=== PATIENT | male | born 1940 | race Caucasian/White ===

== ENCOUNTER 2021-06-06 10:09 | Inpatient (IN) | payer MEDICARE, MEDICAID ==
[~2021-06-06] VITALS: Ht 182.9 cm; Wt 151.2 kg
[~2021-06-06 10:09] MED LIST: COUMADIN 5 MG TA5 M1 PO; CRESTOR10 MG PO; DIAZEPAM 5 MG5 M1 PO; HYDROCHLOROTHIA25 M1 PO; LISINOPRIL2.5 MG PO; LOPRESSOR100 MG PO; LOVENOX; NOVOLOG100 UNIT/1; VITAMIN D 5050000 I1 PO
[2021-06-06 10:34] VITALS: BP 130/65
[2021-06-06 11:13] LABS: HEMATOCRIT 42.8 % (42.0-52.0); HEMOGLOBIN 13.8 gm/dL (14.0-18.0); MCH 28.8 pg (26.0-34.0); MCHC 32.1 g/dL (28.0-37.0); MCV 89.4 fL (80.0-100.0); MPV 7.3 fl. (7.2-11.1); NUCLEATED RBCS 0 /100WBC; PLATELET COUNT* 358 thou/uL (150-400); RBC 4.79 mil/uL (4.50-6.00); RDW-CV 15.7 % (10.5-14.5)
[2021-06-06 11:18] LABS: CALCIUM 8.4 mg/dL (8.5-10.1); CREATININE 1.3 mg/dL (0.6-1.3); POTASSIUM 3.5 mmol/L (3.5-5.1)
[2021-06-06 11:22] LABS: ALBUMIN 2.7 g/dL (3.4-5.0); TOTAL BILIRUBIN 1.3 mg/dL (<0.1-1.0); TOTAL PROTEIN 7.2 g/dL (6.4-8.2)
[2021-06-06 12:12] LABS: ABSOLUTE LYMPHOCYTES 0.7 thou/uL (0.8-5.3); ABSOLUTE MONOCYTES 1.7 thou/uL (0.0-1.2); ABSOLUTE NEUTROPHILS 21.6 thou/uL (1.6-8.1); PLATELET ESTIMATE ADEQUATE
[2021-06-06 14:00] VITALS: BP 134/89
[2021-06-06 14:44] LABS: INR 1.3; PROTIME 13.1 Seconds (9.20-11.50)
[2021-06-06 18:00] VITALS: BP 142/70
[2021-06-06 20:40] VITALS: BP 139/81
[2021-06-06 20:55] VITALS: BP 136/75
[2021-06-07] VITALS: BP 123/57
[2021-06-07 04:50] VITALS: BP 134/69
[2021-06-07 05:41] LABS: INR 1.3
[2021-06-07 05:50] LABS: ALBUMIN 2.3 g/dL (3.4-5.0); CALCIUM 8.1 mg/dL (8.5-10.1); POTASSIUM 3.2 mmol/L (3.5-5.1); TOTAL PROTEIN 6.5 g/dL (6.4-8.2)
[2021-06-07 05:52] LABS: PREALBUMIN 7.8 mg/dL (18.0-35.7)
[2021-06-07 05:54] LABS: CHOLESTEROL 106 mg/dL (<200); HDL CHOLESTEROL 36 mg/dL (>40); LDL CHOLESTEROL 56 mg/dL (<100); TC:HDL 2.9 Ratio (Not establshd); TRIGLYCERIDE 72 mg/dL (<150); VLDL 14 mg/dL (<40)
[2021-06-07 05:58] LABS: SERUM ASSESSMENT Clear
[2021-06-07 08:00] VITALS: BP 129/79
--- NOTE | 2021-06-07 11:20 | EKG ---
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: : 1940 Requested By: Gabby Potter Order Number: [id number] MD: Pancho Mayer Measurements Intervals [place] Rate: 112 P: OR: QRS: 102 QRSD: 89 T: -77 QT: 296 QTc: 404 Interpretive Statements Atrial fibrillation Right axis deviation Low voltage, precordial leads Borderline T abnormalities, diffuse leads No previous ECG available for comparison Electronically Signed On 06-07-2021 11:19:52 USED EQUIPMENT SALES REPRESENTATIVE by Pancho Mayer [email or web address] <ELECTRONICALLY SIGNED> By: Pancho Mayer MD, FACC 06/07/21 1119 1105 1105 Pancho Mayer MD, [facility] /EPI
[2021-06-07 11:45] VITALS: BP 99/51
[2021-06-07 11:52] LABS: ABSOLUTE BASOPHILS 0.1 thou/uL (0.0-0.2); ABSOLUTE EOSINOPHILS 0.1 thou/uL (0.0-0.7); ABSOLUTE LYMPHOCYTES 0.9 thou/uL (0.8-5.3); ABSOLUTE MONOCYTES 1.3 thou/uL (0.0-1.2); BASOPHILS 0.3 %; EOSINOPHILS 0.4 %; HEMATOCRIT 40.4 % (42.0-52.0); LYMPHOCYTES 4.8 %; MCH 28.5 pg (26.0-34.0); MCHC 32.1 g/dL (28.0-37.0); MCV 88.7 fL (80.0-100.0); MONOCYTES 6.9 %; MPV 7.4 fl. (7.2-11.1); NUCLEATED RBCS 0 /100WBC; PLATELET COUNT* 371 thou/uL (150-400); POLYS 87.6 %; RBC 4.56 mil/uL (4.50-6.00); RDW-CV 15.9 % (10.5-14.5); WBC 19.5 thou/uL (4.0-11.0)
[2021-06-07 15:59] VITALS: BP 99/50
[2021-06-07 20:32] VITALS: BP 85/45
[2021-06-08] VITALS: BP 126/67
[2021-06-08 03:06] LABS: GLYCOHEMOGLOBIN (HGB A1C) 6.7 % (4.8-5.6)
[2021-06-08 04:36] VITALS: BP 103/60
[2021-06-08 05:26] LABS: INR 1.2; PROTIME 12.3 Seconds (9.20-11.50)
[2021-06-08 05:34] LABS: CALCIUM 8.2 mg/dL (8.5-10.1); CREATININE 1.3 mg/dL (0.6-1.3); POTASSIUM 3.3 mmol/L (3.5-5.1)
[2021-06-08 09:00] VITALS: BP 77/31
[2021-06-08 10:43] LABS: ABSOLUTE BASOPHILS 0.1 thou/uL (0.0-0.2); ABSOLUTE EOSINOPHILS 0.1 thou/uL (0.0-0.7); ABSOLUTE LYMPHOCYTES 0.9 thou/uL (0.8-5.3); ABSOLUTE MONOCYTES 1.2 thou/uL (0.0-1.2); ABSOLUTE NEUTROPHILS 11.7 thou/uL (1.6-8.1); BASOPHILS 0.4 %; EOSINOPHILS 0.5 %; HEMATOCRIT 40.6 % (42.0-52.0); HEMOGLOBIN 13.2 gm/dL (14.0-18.0); LYMPHOCYTES 6.8 %; MCH 28.9 pg (26.0-34.0); MCHC 32.6 g/dL (28.0-37.0); MCV 88.8 fL (80.0-100.0); MONOCYTES 8.7 %; MPV 7.7 fl. (7.2-11.1); NUCLEATED RBCS 0 /100WBC; PLATELET COUNT* 353 thou/uL (150-400); POLYS 83.6 %; RBC 4.58 mil/uL (4.50-6.00); RDW-CV 15.7 % (10.5-14.5)
[2021-06-08 10:55] LABS: ALBUMIN 2.4 g/dL (3.4-5.0); CREATININE 1.3 mg/dL (0.6-1.3); POTASSIUM 3.6 mmol/L (3.5-5.1); TOTAL BILIRUBIN 0.8 mg/dL (<0.1-1.0); TOTAL PROTEIN 6.7 g/dL (6.4-8.2)
--- NOTE | 2021-06-08 11:39 | CON ---
[address] [address] CONSULTATION Name: VITALY MOODY Room: [address] IN [place].Samuel.#: [id number] Admission: 06/06/21 Attend Phys: Williams Buck MD Discharge: Date of : 42 Report #: [id number] THIS REPORT FOR: cc: FAM - No family physician/PCP FAM - No family physician/PCP Pancho Mayer MD [facility] ~ cc: Vish Villavicencio DO DATE OF CONSULTATION: 06/07/2021 HISTORY OF PRESENT ILLNESS: The patient is a 80-year-old white male who I was asked to see in the hospital today after he was noted to be in atrial fibrillation. The history is obtained from the patient. There are no family members available. He has never been here to [place] before. He denies a history of heart disease. He is not very active at this time and uses a walker. Recently, he has been having back pain. He finally had the ambulance bring him to the Emergency Room yesterday morning. Apparently, the found that he was having loose stools and his legs were covered with stool. He had some memory issues according to the . He has been weak. He denies any chest pain, shortness of breath, palpitation, or syncope. PAST MEDICAL HISTORY: He has had tooth extraction, fatty tumor removed from his neck. He has a history of diabetes, hypertension. MEDICATIONS AT HOME: Included Crestor, lisinopril, hydrochlorothiazide, insulin, metoprolol, diltiazem, warfarin. ALLERGIES: HE HAS A PREVIOUS INTOLERANCE TO PENICILLIN. FAMILY HISTORY: His father had valve replacement surgery. SOCIAL HISTORY: He is . His live in [place]. Quit smoking 20 years ago. He used to abuse alcohol, but quit 20 years ago. 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 REVIEW OF SYSTEMS: He is overweight being 6 feet tall, 342 pounds. No history of stroke. There is no history of snoring at night. No history of bleeding, kidney disease, cancer, psychiatric illness. He has had a kidney stone in the past. No chronic skin condition. PHYSICAL EXAMINATION: GENERAL: Revealed a large, elderly male in mild distress secondary to back pain. VITAL SIGNS: He had a blood pressure of 140/70, pulse is 110 and regular. [place] [address] CONSULTATION Name: VITALY MOODY Room: [address]#: [id number] Admission: 06/06/21 Attend Phys: Williams Buck MD Discharge: Date of : 42 Report #: [id number] HEENT: He was anicteric. Conjunctivae are pink. Mucous members appear dry. NECK: Neck veins do not appear distended. CHEST: Revealed decreased breath sounds in the bases. HEART: Irregular, tachycardia. No significant murmur. ABDOMEN: Obese. EXTREMITIES: Had edema. SKIN: Dry. LABORATORY DATA: His ECG on admission showed atrial fibrillation with an incomplete right bundle branch block, nonspecific T-wave changes. His workup in the Emergency Room yesterday, he had potassium only 3.2, creatinine 1.0. His high sensitivity troponin was only 11, LDL was 56. His INR was 1.3, hematocrit 42.8. His COVID antigen stat test was negative. IMPRESSION AND RECOMMENDATIONS: 1. Atrial fibrillation. Suspect chronic. The patient has been on beta bibiana and warfarin. I would aim for rate control. I would not recommend cardioversion at this time. I would consider an echocardiogram and thyroid function studies. 2. Hypertension. The patient is on a beta bibiana, KIMBERLY inhibitor and diuretic. 3. Hyperlipidemia. The patient is on a statin drug. 4. Chronic anticoagulation with warfarin. I would aim for INR of 2-3. 5. Hyperlipidemia. The patient is on a statin drug. 6. Morbid obesity. 7. Feet ulcers. Suspect venous stasis. 8. Chronic back pain. The patient's activity is severely limited. <ELECTRONICALLY SIGNED> By: Pancho Mayer MD, FACC 06/08/21 1139 0846 [id number] Mayer MD, FAC /nt
--- NOTE | 2021-06-08 12:51 | 2DMMODE ---
[place] [address] 2 D/M-MODE ECHOCARDIOGRAM Name: VITALY MOODY Room: [address] IN [place]#: [id number] Admission: 06/06/21 Attend Phys: Williams Buck, Discharge: Date of : 42 Date of Service: 06/08/21 1251 Report #: [id number] THIS REPORT FOR: cc: FAM - No family physician/PCP FAM - No family physician/PCP Pancho Mayer MD [facility] ~ APPROVED REPORT Study performed: 06/08/2021 10:57:25 EXAM: Comprehensive 2D, Doppler, and color-flow Echocardiogram Patient Location: In-Patient Room #: 229 Status: routine BSA: 2.65 HR: 103 bpm BP: 103/60 mmHg Rhythm: Atrial Fibrillation Other Information Technically limited study due to poor endocardial definition, body habitus. Indications Atrial Fibrillation Echo Enhancing Agent Indication: Endocardial border delineation Agent(s) / Amount(s) Used: Agitated Saline 3 cc 2D Dimensions IVSd: 12.00 (7-11mm) LVOT Diam: 21.00 (18-24mm) LVDd: 48.00 mm PWd: 11.00 (7-11mm) Ascending Ao: 32.00 (22-36mm) LVDs: 36.00 (25-40mm) Aortic Root: 30.00 mm Volumes Left Atrial Volume (Systole) LA ESV Index: 32.80 mL/m2 Tricuspid Valve RAP Estimate: 5.00 mmHg TR Peak Gr.: 36.50 mmHg RVSP: 41.00 [place] [address] 2 D/M-MODE ECHOCARDIOGRAM Name: VITALY MOODY Room: [address] IN [facility]#: [id number] Admission: 06/06/21 Attend Phys: Williams Buck, Discharge: Date of : 42 Date of Service: 06/08/21 1251 Report #: [id number] PA Pressure: 41.00 mmHg Left Ventricle The left ventricle is normal size. There is normal LV segmental wall motion. Mild concentric left ventricular hypertrophy. Left ventricular systolic function is normal. The left ventricular ejection fraction is within the normal range. LVEF is 55-60%. This study is not technically sufficient to allow evaluation of the LV diastolic function due to atrial fibrillation. Right Ventricle Right ventricle is mildly dilated. Right ventricle is mildly hypokinetic. Atria Left atrium is mildly dilated. Right atrium is mildly dilated. Aortic Valve The Aortic valve is sclerotic. No aortic regurgitation is present. There is no aortic valvular stenosis. Mitral Valve The mitral valve is normal in structure. Trace mitral regurgitation. No evidence of mitral valve stenosis. Tricuspid Valve The tricuspid valve is normal in structure. Mild tricuspid regurgitation. Moderate pulmonary hypertension. estimated pa pressure 45 mm Hg Pulmonic Valve The pulmonary valve is normal in structure. There is no pulmonic valvular regurgitation. Great Vessels The aortic root is normal in size. IVC is normal in size and collapses >50% with inspiration. Pericardium There is no pericardial effusion. <Conclusion> Mild concentric left ventricular hypertrophy. LVEF is 55-60%. Right ventricle [place] [address] 2 D/M-MODE ECHOCARDIOGRAM Name: VITALY MOODY Room: [address] IN .R.#: [id number] Admission: 06/06/21 Attend Phys: Williams Buck, Discharge: Date of : 42 Date of Service: 06/08/21 125 Report #: [id number] Left atrium is mildly dilated. The Aortic valve is sclerotic. Trace mitral regurgitation. Mild tricuspid regurgitation. estimated pa pressure 45 mm Hg <ELECTRONICALLY SIGNED> By: Pancho Mayer MD, FACC 06/08/21 125 50 50 Pancho Mayer MD, FACC /INF
[2021-06-08 13:21] LABS: URINE BILIRUBIN NEGATIVE (Negative); URINE BLOOD 1+ (Negative); URINE CLARITY CLEAR; URINE COLOR YELLOW; URINE GLUCOSE-RANDOM NEGATIVE (Negative); URINE KETONES NEGATIVE (Negative); URINE LEUKOCYTES-REFLEX NEGATIVE (Negative); URINE NITRITE-REFLEX NEGATIVE (Negative); URINE PROTEIN NEGATIVE (Negative); URINE UROBILINOGEN 0.2 E.U./dl (0.2-1.0)
[2021-06-08 13:27] LABS: SQUAMOUS 0-3 Few /LPF (0-3)
[2021-06-08 13:28] LABS: URINE RBC 0-2 Rare /HPF (0-2); URINE WBC-REFLEX 0-5 Rare /HPF (0-5)
[2021-06-08 13:29] LABS: CASTS None Seen /LPF (None Seen); CRYSTALS None Seen /LPF (None Seen); MUCUS None Seen strn/LPF (None Seen)
[2021-06-08 14:39] VITALS: BP 114/57
[2021-06-08 18:35] VITALS: BP 140/63
[2021-06-08 20:00] VITALS: BP 104/39
== END 2021-06-09 | disposition still patient (30) | DRG 871 ==
LOC: M.ERS 10:09 → M.2W 13:49 → M.TBA-ER 13:49 → M.2W 20:59
PROVIDERS: Internal Medicine Cardiovascular Disease; Physician Assistant; ADMIT Internal Medicine; ATTEND Internal Medicine
PROC: 05HF33Z Insertion of Infusion Device into Left Cephalic Vein, Percutaneous Approach (ICD-10-PCS; principal; 2021-06-09)
DX: A41.9 Sepsis, unspecified organism (principal); G93.41 Metabolic encephalopathy; Z68.42 Body mass index [BMI] 45.0-49.9, adult; Z20.822 Contact with and (suspected) exposure to COVID-19; I10 Essential (primary) hypertension; R15.9 Full incontinence of feces; M54.30 Sciatica, unspecified side; E11.621 Type 2 diabetes mellitus with foot ulcer; L97.529 Non-pressure chronic ulcer of other part of left foot with unspecified severity; L97.519 Non-pressure chronic ulcer of other part of right foot with unspecified severity; G89.29 Other chronic pain; N20.0 Calculus of kidney; M54.9 Dorsalgia, unspecified; E66.01 Morbid (severe) obesity due to excess calories; K80.20 Calculus of gallbladder without cholecystitis without obstruction; E78.5 Hyperlipidemia, unspecified; G31.84 Mild cognitive impairment of uncertain or unknown etiology; I87.2 Venous insufficiency (chronic) (peripheral); M47.816 Spondylosis without myelopathy or radiculopathy, lumbar region; K52.9 Noninfective gastroenteritis and colitis, unspecified; I48.91 Unspecified atrial fibrillation; M51.86 Other intervertebral disc disorders, lumbar region; Z79.899 Other long term (current) drug therapy; Z86.018 Personal history of other benign neoplasm; Z88.0 Allergy status to penicillin; Z91.041 Radiographic dye allergy status; Z79.4 Long term (current) use of insulin; Z79.01 Long term (current) use of anticoagulants; Z79.891 Long term (current) use of opiate analgesic; Z88.8 Allergy status to other drugs, medicaments and biological substances